=== PATIENT | male | born 1985 | race Caucasian/White ===

== ENCOUNTER 2018-04-12 11:10 | Outpatient (RCR) | payer OTHER, MEDICAID, SELFPAY ==
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
== END 2018-09-06 11:07 ==
LOC: PHYS 11:10
PROVIDERS: Visit Provider Family Medicine Sports Medicine
DX: R26.9 Unspecified abnormalities of gait and mobility (principal)
CPT/HCPCS: 97163

== ENCOUNTER → 2019-12-08 10:04 | Outpatient (CLI) | payer OTHER, MEDICAID, SELFPAY ==
[2019-12-09 09:44] LABS: COVID19 Sendout NOT DETECTED (Not Detect)
== END ==
PROVIDERS: Visit Provider Physician Assistant
DX: Z01.812 Encounter for preprocedural laboratory examination (principal)
CPT/HCPCS: 87635

== ENCOUNTER 2024-05-02 09:08 | Emergency (ER) | payer OTHER, MEDICAID, SELFPAY ==
[2024-05-02] VITALS (9 sets, daily range): BP systolic 147–189; BP diastolic 79–103; PULSE 93–114; RESP 17–24; TEMP 36.8; O2SAT 98–99; BMI 25.8
--- NOTE | 2024-05-02 10:20 | ED_ITS ---
HPI - Wound/Laceration General Chief Complaint: Wound/Laceration Stated Complaint: left leg infection Time Seen by Provider: 05/02/24 09:12 History of Present Illness HPI narrative: 38-year-old gentleman with a history of lower extremity weakness for which he typically uses a wheelchair after some type of cervical spine injury a number of years ago, comes in complaining of infection in his left knee. He apparently has been seen at urgent care x2 and an ER visit over the course of the , and . In transferring from his wheelchair into the car he occasionally has falls landing on his knees. Developed an abrasion on the left knee that was looking like it was becoming infected. He states that he is allergic to ?absolutely every single antibiotic there is and I can not possibly have any antibiotic ever?. With all prior visits he was told that this was a superficial abrasion that there was not enough abscess or drainage to warrant I&D. He is frustrated with those visits and felt the wound should have been opened. Last night it started draining any comes [place] for further evaluation. He is complaining of moderate pain, there is mild amount of surrounding erythema. Moderate drainage from the central part of the abrasion. No other injuries Related Data Previous Rx's Medication Instructions Recorded methocarbamol 500 mg tablet 500 mg PO BIDP PRN #20 tabs 03/23/17 ondansetron 4 mg disintegrating 4 mg sublingual Q6HP PRN ##10 09/20/17 tablet (Zofran ODT) oxycodone 5 mg tablet 10 mg (2 x 5 mg) PO Q6HP PRN #10 09/20/17 tabs acetaminophen 325 mg tablet 325 mg PO Q6HP PRN #30 tabs 10/02/17 ibuprofen 400 mg tablet 400 mg PO Q6HP PRN #30 tabs 10/02/17 bacitracin 500 unit/gram topical 1 applic topical Q8H #144 ea 05/02/24 packet Allergies Allergy/AdvReac Type Severity Reaction Status Date / Time chocolate flavor Allergy Unknown Unverified 09/29/17 11:48 [CHOCOLATE FLAVOR] Penicillins [PENICILLINS] Allergy Unknown Unverified 09/29/17 11:48 PT STATES UNKNOWN ANTIBIOTICS Allergy Severe throat Uncoded 09/29/17 11:48 swells shut BEE STINGS Allergy Unknown Uncoded 09/29/17 11:48 nuts Allergy Unknown Uncoded 09/29/17 11:48 PEPPERS Allergy Unknown Uncoded 09/29/17 11:48 Review of Systems Review of Systems Narrative: Pertinent positive and negative findings as per HPI Patient History Medical History Latex allergy status Seizure Social History Smoking Status: Unknown if ever smoked Smoking Status: Unknown if ever smoked alcohol intake frequency: other Substance Use Type: does not use Exam Initial Vital Signs Initial Vital Signs: Vital Signs Temperature 98.3 F 05/02/24 09:11 Pulse Rate 114 H 05/02/24 09:11 Respiratory Rate 18 05/02/24 09:11 Blood Pressure 167/99 H 05/02/24 09:11 Pulse Oximetry 99 05/02/24 09:11 Oxygen Delivery Method Room Air 05/02/24 09:11 General: Alert disheveled, slightly pressured speech, completely cooperative Respiratory: Able to speak in full sentences, no obvious respiratory distress Skin: No obvious rashes, warm and dry Neurologic: Grossly intact no obvious asymmetries or abnormalities Extremity: He is area of infection just under the left knee. It does appear that it is draining, there was approximately 2 cm at if expanding erythema on the lateral aspect of it. There does not seem to be significant underlying fluctuance Procedures Abscess I/D Left knee: Time of procedure: 11:11 Site: lower extremity Side (if applicable): left Local Anesthetic: lidocaine 1% and with epi Amount of anesthesia used (mL): 4 Technique: incised with #11 blade Amount of fluid expressed (mL): 0.2 Irrigation: Yes Packing used?: none Course Vital Signs Vital signs: Vital Signs - 8 hr 05/02/24 09:11 05/02/24 09:27 05/02/24 09:27 Temperature 98.3 F Pulse Rate 114 H Respiratory Rate 18 17 Blood Pressure 167/99 H 189/95 H Pulse Oximetry 99 99 Oxygen Delivery Method Room Air 05/02/24 09:30 05/02/24 09:30 05/02/24 09:40 Temperature Pulse Rate 107 H 104 H Respiratory Rate 24 Blood Pressure 179/93 H Pulse Oximetry 99 Oxygen Delivery Method 05/02/24 10:00 05/02/24 10:00 Temperature Pulse Rate 101 H Respiratory Rate 19 Blood Pressure 153/92 H Pulse Oximetry 98 Oxygen Delivery Method MDM - Wound/Laceration MDM Narrative Medical decision making narrative: 38-year-old gentleman presents for the 1st time to [place] ER, it looks like he has a complex medical history including seizures, lower extremity weakness needing a wheelchair, chronic pain issues, perhaps Asperger's disorder, perhaps myocardial infarction, it is unclear if he actually has a place to live, he has a long story with multiple details about 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 He has an abrasion on the left upper tibia that has become superficially infected, it is draining. He insisted on having it opened and flushed. I have done that. There was minimal drainage minimal purulence and no foreign bodies. It was flushed to his specifications. The wound edges were gently debrided. There is minimal surrounding cellulitis to the area. This is not a suprapatellar or prepatellar bursa. There is no joint infection this does not extend deeper into surrounding tissue At this time, I believe simple wound care is going to allow this to heal appropriately. Patient absolutely declines any even consideration of antibiotics. We did discuss his high blood pressure and rapid heart rate. You was complaining of severe pain he was given 2 Percocet to help with that in the emergency department Assistance was given by staff to help him find another wheelchair and apparently the [facility] has 1 available later this afternoon He is safe for discharge Discharge Plan Departure Patient Disposition: Home Clinical Impression: Abscess Instructions: DI for Skin Abscess Activity Restrictions/Additional Instructions: I am glad we were able to get the wound to your left knee cleaned to your specifications. There was not much pus that was still in the wound, and the wound itself is not very deep. It was rinsed out thoroughly At this point should heal nicely without any oral antibiotics. Please do continue to use topical antibiotics and dressings as needed A new prescription for additional bacitracin topical antibiotic was electronically transmitted to [facility] If it is getting worse you are having worsening symptoms you do need to be re- evaluated Prescriptions: New bacitracin 500 unit/gram packet 1 applic topical Q8H Qty: 144 0RF No Action methocarbamol 500 MG tablet 500 mg PO BIDP PRNQty: 20 0RF oxycodone 5 MG tablet 10 mg PO Q6HP PRNQty: 10 0RF ondansetron [Zofran ODT] 4 MG tablet,disintegrating 4 mg Sublingual Q6HP PRNQty: 10 0RF acetaminophen 325 MG tablet 325 mg PO Q6HP PRNQty: 30 0RF ibuprofen 400 MG tablet 400 mg PO Q6HP PRNQty: 30 0RF Stand Alone Forms: Patient Portal/API/Survey
[2024-05-02] MEDS: OXYCODONE/ACETAMINOPHEN 5/325 TABLET 2 TAB PO (11:40)
--- NOTE | 2024-05-02 11:58 | PC.NURSE ---
Pt provided with taxi voucher to [employer] shop to obtain a wheelchair. Pt verbalizes understanding of instructions.
== END 2024-05-02 12:00 | disposition home or self-care (01) ==
PROVIDERS: Emergency Provider Emergency Medicine
DX: L02.416 Cutaneous abscess of left lower limb (principal)
CPT/HCPCS: 10060; 87070; 87077; 87147; 87186; 87205; 99283

== ENCOUNTER 2024-05-04 10:04 | Emergency (ER) | payer OTHER, MEDICAID, SELFPAY ==
[2024-05-04 10:20] VITALS: BP 163/93; PULSE 109; RESP 22; TEMP 37.4; O2SAT 99
--- NOTE | 2024-05-04 10:30 | ED.SKABFB ---
HPI - Skin/Abscess/Foreign Bdy General Chief complaint: Skin/Abscess/Foreign Body Stated complaint: Left knee infection Time Seen by Provider: 05/04/24 10:16 Source: patient Mode of arrival: Ambulatory Limitations: no limitations History of Present Illness HPI narrative: Patient is a 38-year-old male who states that he has ?no control of his muscles? from his mid thigh to his mid tibia. He spends time in a wheelchair. Was seen here in the emergency department approximately 48 hours ago where he had an incision and drainage of an abscess to his left knee. He states that he can not take any antibiotics because of prior reactions. Topical antibiotics were placed at that time. He was discharged home refusing any oral antibiotics. Apparently he was seen at the walk-in clinic yesterday. Was told that if his symptoms worsen he could lose his leg. He comes in the emergency department today stating that the redness seems to be changing locations. It is draining. He states that he would like to be admitted to the hospital for observation. Related Data Previous Rx's Medication Instructions Recorded methocarbamol 500 mg tablet 500 mg PO BIDP PRN #20 tabs 03/23/17 ondansetron 4 mg disintegrating 4 mg sublingual Q6HP PRN ##10 09/20/17 tablet (Zofran ODT) oxycodone 5 mg tablet 10 mg (2 x 5 mg) PO Q6HP PRN #10 09/20/17 tabs acetaminophen 325 mg tablet 325 mg PO Q6HP PRN #30 tabs 10/02/17 ibuprofen 400 mg tablet 400 mg PO Q6HP PRN #30 tabs 10/02/17 bacitracin 500 unit/gram topical 1 applic topical Q8H #144 ea 05/02/24 packet Allergies Allergy/AdvReac Type Severity Reaction Status Date / Time chocolate flavor Allergy Unknown Unverified 09/29/17 11:48 [CHOCOLATE FLAVOR] Penicillins [PENICILLINS] Allergy Unknown Unverified 09/29/17 11:48 PT STATES UNKNOWN ANTIBIOTICS Allergy Severe throat Uncoded 09/29/17 11:48 swells shut BEE STINGS Allergy Unknown Uncoded 09/29/17 11:48 nuts Allergy Unknown Uncoded 09/29/17 11:48 PEPPERS Allergy Unknown Uncoded 09/29/17 11:48 Review of Systems Musculoskeletal Musculoskeletal: Reports system reviewed and no additional complaints, except as documented Integumentary/Breasts Skin/Breast: Reports system reviewed and no additional complaints, except as documented Patient History Medical History Latex allergy status Seizure Social History Smoking Status: Unknown if ever smoked Smoking Status: Unknown if ever smoked alcohol intake frequency: other Substance Use Type: does not use Exam Initial Vital Signs Initial Vital Signs: Vital Signs Temperature 99.3 F 05/04/24 10:20 Pulse Rate 109 H 05/04/24 10:20 Respiratory Rate 22 05/04/24 10:20 Blood Pressure 163/93 H 05/04/24 10:20 Pulse Oximetry 99 05/04/24 10:20 Oxygen Delivery Method Room Air 05/04/24 10:20 Skin Other: Patient has a 2 cm open wound to the anterior aspect of his left knee just inferior to the patella. There is a small amount of purulent material that is expressed. There was quite a bit of tissue that was easily removed. There is a small amount of erythema that extends approximately 3 cm to the lateral aspect of the wound. No crepitus. No fluctuance noted. Course Orders Ordered: Discontinued Medications Acetaminophen (Acetaminophen 325 Mg Tablet) 650 mg PO NOW ONE Stop: 05/04/24 10:32 Bacitracin (Bacitracin Oint 0.9 Gm Pckt) 1 applic TOP NOW ONE Stop: 05/04/24 10:32 Vital Signs Vital signs: Vital Signs - 8 hr 05/04/24 10:20 Temperature 99.3 F Pulse Rate 109 H Respiratory Rate 22 Blood Pressure 163/93 H Pulse Oximetry 99 Oxygen Delivery Method Room Air MDM - Skin/Abscess/Foreign Bdy MDM Narrative Medical decision making narrative: There was no indication for any radiologic studies. The wound is open and does appear to be draining a small amount of purulent material. There was a small amount of erythema specifically to the lateral aspect of the wound. He was outlined with a marker. I recommended that the patient start on oral antibiotics. He does not need admitted to the hospital. I offered to give him a dose of antibiotics here in the ER and watch him for a period of time to make sure he does not have any sort of reactions however the patient declined this. I told him that there was a possibility that his symptoms will improve with time but there was also a possibility that the cellulitis would worsen without antibiotics. He was not septic today. Nontoxic appearing. Patient expressed understanding of this. Is adamant that he does not want antibiotics. The wound was irrigated. Topical antibiotics were placed and he seemed to tolerate this well the last time. Advised that he return to the emergency department if his symptoms worsen. Patient is alert and oriented x3. GCS of 15. Not clinically intoxicated my opinion has capacity to make decisions. Discharge Plan Departure Patient Disposition: Home Clinical Impression: Cellulitis Instructions: DI for Cellulitis -- Adult Activity Restrictions/Additional Instructions: Despite my recommendation to start antibiotics you have opted to wait to see whether or not the wound heals on its own. There is a possibility that this will happen. I recommend keeping the area clean with soap and water. A topical antibiotic ointment can be helpful as well. If your symptoms worsen over the next 24-48 hours then please return to the emergency department for further evaluation. Prescriptions: No Action methocarbamol 500 MG tablet 500 mg PO BIDP PRNQty: 20 0RF oxycodone 5 MG tablet 10 mg PO Q6HP PRNQty: 10 0RF ondansetron [Zofran ODT] 4 MG tablet,disintegrating 4 mg Sublingual Q6HP PRNQty: 10 0RF acetaminophen 325 MG tablet 325 mg PO Q6HP PRNQty: 30 0RF ibuprofen 400 MG tablet 400 mg PO Q6HP PRNQty: 30 0RF bacitracin 500 unit/gram packet 1 applic topical Q8H Qty: 144 0RF Stand Alone Forms: Patient Portal/API/Survey
--- NOTE | 2024-05-04 10:34 | PC.NURSE ---
Dr Ash at bedside. Pt declined recommended abx treatment and rx due to being allergic to every antibiotic known to man. Wound on left knee draining yellowish-carreon puss and surrounding tissue edemetous and red. States 4/10 pain when touched, but otherwise no pain.
[2024-05-04] MEDS: ACETAMINOPHEN 325 MG TABLET 650 MG PO (10:44)
[2024-05-04] MEDS: BACITRACIN OINT 0.9 GM PCKT 1 APPLIC TOP (10:44)
--- NOTE | 2024-05-04 11:02 | PC.NURSE ---
Wound incision cleaned with soapy water and irrigated with normal saline. Bacitracin applied. Covered with nonstick gauze, kerlix and alexx bandage. Pt offered IV abx and a period of obs in the ED, but declined. Refused vital signs and assistance out of the dept.
== END 2024-05-04 11:10 | disposition home or self-care (01) ==
PROVIDERS: Emergency Provider Emergency Medicine
DX: L03.116 Cellulitis of left lower limb (principal)
CPT/HCPCS: 99283

== ENCOUNTER 2024-05-13 10:47 | Emergency (ER) | payer OTHER, MEDICAID, SELFPAY ==
[2024-05-13] VITALS (9 sets, daily range): BP systolic 147–162; BP diastolic 70–88; PULSE 98–118; RESP 18–39; TEMP 36.9; O2SAT 97–98
--- NOTE | 2024-05-13 11:30 | PC.NURSE ---
Pt is adamant that he is allergic to all antibiotics and refusing to entertain the subject of taking them. Unable to name any antibiotics that he is allergic to. States it keeps falling off my chart. States he does not think the infection is bad enough and rather not risk it. HR 112.
--- NOTE | 2024-05-13 11:35 | ED_ITS ---
HPI - Skin/Abscess/Foreign Bdy General Chief complaint: Skin/Abscess/Foreign Body Stated complaint: left leg bothering him Time Seen by Provider: 05/13/24 11:35 Source: patient Mode of arrival: Ambulatory Limitations: no limitations History of Present Illness HPI narrative: patient is a 38-year-old male wheelchair-bound, history of no control of his muscles from his mid thigh to mid tibia, coming in complaining of persistent pain drainage swelling to the knee. Has been seen here previously multiple times for the same. On review of records shows that patient is not amenable to antibiotics, he states that he is allergic to them and refuses to take any antibiotics. He is willing to do topical antibiotics only. There was concern at that time that patient was having cellulitis was told to try oral antibiotics but he states that he is anaphylactic to all antibiotics therefore he has not willing to take any oral antibiotics. He presents due to persistent redness pain to that area stating that it is not any worse than prior but due to persistent symptoms decided come into the ED for further evaluation treatment. Related Data Previous Rx's Medication Instructions Recorded methocarbamol 500 mg tablet 500 mg PO BIDP PRN #20 tabs 03/23/17 ondansetron 4 mg disintegrating 4 mg sublingual Q6HP PRN ##10 09/20/17 tablet (Zofran ODT) oxycodone 5 mg tablet 10 mg (2 x 5 mg) PO Q6HP PRN #10 09/20/17 tabs acetaminophen 325 mg tablet 325 mg PO Q6HP PRN #30 tabs 10/02/17 ibuprofen 400 mg tablet 400 mg PO Q6HP PRN #30 tabs 10/02/17 bacitracin 500 unit/gram topical 1 applic topical Q8H #144 ea 05/02/24 packet bacitracin 500 unit/gram topical 1 applic topical TID 1 week #14 05/13/24 ointment grams Allergies Allergy/AdvReac Type Severity Reaction Status Date / Time chocolate flavor Allergy Unknown Unverified 09/29/17 11:48 [CHOCOLATE FLAVOR] Penicillins [PENICILLINS] Allergy Unknown Unverified 09/29/17 11:48 PT STATES UNKNOWN ANTIBIOTICS Allergy Severe throat Uncoded 09/29/17 11:48 swells shut BEE STINGS Allergy Unknown Uncoded 04/11/18 11:48 nuts Allergy Unknown Uncoded 09/29/17 11:48 PEPPERS Allergy Unknown Uncoded 09/29/17 11:48 Review of Systems Review of Systems Narrative: General: Denies fever, chills, weight loss HEENT: Denies headache, eye drainage, eye irritation, head trauma, sore throat, voice change Cardiovascular: Denies any chest pain, palpitations, shortness of breath, tachycardia Respiratory: Denies any shortness of breath, cough, wheeze, stridor GI/: Denies any abdominal pain, nausea, vomiting, diarrhea, bright red blood per rectum, melanotic stools, urinary frequency, urinary retention, dysuria, hematuria MSK: Denies any joint pain, muscle pains, swelling Skin: left knee pain, swelling, redness Neuro: Denies any headache, lightheadedness, dizziness, fainting, weakness Psych: Denies SI/HI Patient History Medical History Latex allergy status Seizure Social History Smoking Status: Unknown if ever smoked Smoking Status: Unknown if ever smoked alcohol intake frequency: other Substance Use Type: does not use Exam Narrative Exam Narrative: General: Cooperative, comfortable, well-developed, not in acute distress HEENT: Normocephalic, atraumatic, PERRLA, normal sclera, eyelids normal, Neck: Active full range of motion, atraumatic Chest: Normal to inspection, negative crepitus, no overlying erythema ecchymosis Respiratory: Normal respiratory effort, not in acute respiratory distress, clear to auscultation bilaterally negative cough, wheeze, tachypnea, rhonchi, rales Cardiology: Regular rate rhythm negative gallop, murmur, rubs GI/: Normal to inspection, soft, nonrigid, no tenderness to palpation, exam deferred MSK: Full range of active range of motion of all 4 extremities, atraumatic Skin: there is erythema noted to the left knee, no purulent discharge noted, mild tenderness to palpation overlying the superior aspect of the left knee, no fluctuance, did outline erythema at evaluation here in the emergency department. Neuro: patient at baseline, states he has not able to move his lower extremities from thigh to mid tib, Psych: Cooperative, negative suicidal or homicidal ideations Initial Vital Signs Initial Vital Signs: Vital Signs Temperature 98.5 F 05/13/24 10:49 Pulse Rate 110 H 05/13/24 10:49 Respiratory Rate 20 05/13/24 10:49 Blood Pressure 147/70 H 05/13/24 10:49 Pulse Oximetry 98 05/13/24 10:49 Oxygen Delivery Method Room Air 05/13/24 10:49 Course Orders Ordered: ED Orders 05/13/24 11:27 BMP [Basic Metabolic Panel] Stat CBC Auto Diff [Complete Blood Count AUTO DIFF] Stat 05/13/24 11:53 XR knee LT 3V Stat Discontinued Medications Bacitracin (Bacitracin Oint 0.9 Gm Pckt) 1 applic TOP NOW ONE Stop: 05/13/24 11:54 Last Admin: 05/13/24 13:02 Dose: 1 applic Documented By: JHON Vital Signs Vital signs: Vital Signs - 8 hr 05/13/24 10:49 05/13/24 11:08 05/13/24 11:09 Temperature 98.5 F Pulse Rate 110 H Respiratory Rate 20 Blood Pressure 147/70 H 150/75 H Pulse Oximetry 98 98 Oxygen Delivery Method Room Air 05/13/24 11:09 05/13/24 11:30 05/13/24 11:30 Temperature Pulse Rate 118 H 109 H Respiratory Rate 19 Blood Pressure 152/83 H Pulse Oximetry 98 98 Oxygen Delivery Method 05/13/24 11:31 05/13/24 11:31 05/13/24 11:45 Temperature Pulse Rate 109 H 101 H Respiratory Rate 19 18 Blood Pressure 162/82 H Pulse Oximetry 98 98 Oxygen Delivery Method 05/13/24 11:45 05/13/24 12:42 05/13/24 13:00 Temperature Pulse Rate 98 H 101 H Respiratory Rate 39 H 28 H Blood Pressure 159/88 H Pulse Oximetry 97 98 Oxygen Delivery Method MDM - Skin/Abscess/Foreign Bdy Differential Diagnosis Differential diagnosis: Likely abscess of skin or subcutaneous tissue and other (Cellulitis, foreign body) Lab Data 05/13/24 11:27 05/13/24 11:27 Labs: Lab Results 05/13/24 Range/Units 11:27 WBC 11.5 H (4.5-11.0) X10^3/uL RBC 6.23 H (4.5-5.9) X10^6/uL Hgb 17.4 (13.5-17.5) g/dL Hct 51.5 (41-53) % MCV 82.6 (80-100) fL MCH 28.0 (26-34) PG MCHC 33.8 (30-36) % RDW 13.5 (11.6-14.8) % Plt Count 314 (150-400) X10^3/uL Neut % (Auto) 76.1 H (50-75) % Lymph % (Auto) 9.8 L (25-40) % [place] % (Auto) 11.7 (3-14) % Eos % (Auto) 1.1 L (2-4) % Baso % (Auto) 1.3 (0-2) % Neut # (Auto) 8700 H (8133-3129) /uL Lymph # (Auto) 1100 (4267-3306) /uL [place] # (Auto) 1300 H (0-900) /uL Eos # (Auto) 100 (0-450) /uL Baso # (Auto) 100 (0-100) /uL Sodium 140 (137-145) mmol/L Potassium 3.9 (3.4-5.1) mmol/L Chloride 104 (98-107) mmol/L Carbon Dioxide 27 (22-32) mmol/L BUN 15 (9-20) mg/dL Creatinine 0.69 (0.66-1.25) mg/dL Estimated GFR > 60 (>60) mL/min BUN/Creatinine Ratio 21.7 (6-22) Glucose 82 (70-100) mg/dL Calcium 9.8 (8.4-10.2) mg/dL Imaging Data Extremity x-ray #1: Radiologist's Impression: [address] [address] XRay Report Signed Patient: Lisa Bustamante MR#: [id number] : 02/16/1952 Acct:[id number] Age/Sex: 72 / F Date of Service: 05/13/24 Loc: ED Accession Number: [id number] Procedure: XR chest 1V Ordering Provider: Andrzej Rod D.O. PROCEDURE: XR CHEST 1V INDICATIONS: chest pain TECHNIQUE: One view of the chest was acquired. COMPARISON: [facility], LISA, XR CHEST 1V, 11/14/2023, 16:47. FINDINGS: Surgical changes and devices: None. Lungs and pleura: Lungs are clear. No pleural effusions or pneumothorax. Mediastinum: Mediastinal contours appear normal. Heart size is normal. Bones and chest wall: No suspicious bony lesions. Overlying soft tissues appear unremarkable. IMPRESSION: No acute cardiopulmonary abnormality is seen. MDM Narrative Medical decision making narrative: patient is a 38-year-old male wheelchair-bound complaining of persistent left knee swelling pain redness, to note patient states that he is allergic an anaphylactic every oral antibiotic known to man. He states that he is able to tolerate topical antibiotics, bacitracin tends to work for him. States that he is worried that he has a migrating foreign body in his left knee. Denies any new trauma falls. No micro motion tenderness to the left knee, Patient did have lab work performed here, does have slight leukocytosis at 11.5, but he is afebrile, I did inform patient that it would be highly recommended that he start oral antibiotics given up trending white blood cells, he states that he adamantly refuses would not even want IV antibiotics, he states that he would rather try to fight it off with topical antibiotics, informed him that he shouldAt least follow up with his primary care doctor Infectious Disease for his ongoing symptoms he verbalized understanding of this strict return precautions were given he understands and agrees with this plan patient will be discharged home with outpatient follow up. Discharge Plan Departure Patient Disposition: Home Clinical Impression: Cellulitis Activity Restrictions/Additional Instructions: please follow up with infectious disease as well as primary care Please read the discharge instructions sheet carefully and bring all papers to all doctor follow-up visits, as it may contain information that your doctor may want to see. Disease processes change and evolve, if your symptoms worsen or if you develop any new symptoms that are concerning to you please return for evaluation. Your evaluation today does not show any evidence of any life- threatening/serious illnesses requiring admission to the hospital or surgery. Please follow-up with your doctor for re-evaluation in approximately 1 day. Seek immediate medical attention for any worrisome symptoms. Prescriptions: New bacitracin 500 unit/gram ointment 1 applic topical TID 7 Days Qty: 14 0RF No Action methocarbamol 500 MG tablet 500 mg PO BIDP PRNQty: 20 0RF oxycodone 5 MG tablet 10 mg PO Q6HP PRNQty: 10 0RF ondansetron [Zofran ODT] 4 MG tablet,disintegrating 4 mg Sublingual Q6HP PRNQty: 10 0RF acetaminophen 325 MG tablet 325 mg PO Q6HP PRNQty: 30 0RF ibuprofen 400 MG tablet 400 mg PO Q6HP PRNQty: 30 0RF bacitracin 500 unit/gram packet 1 applic topical Q8H Qty: 144 0RF Stand Alone Forms: Patient Portal/API/Survey
--- NOTE | 2024-05-13 11:53 | DI.RAD.S_ITS ---
PROCEDURE: XR KNEE LT 3V INDICATIONS: Please evaluate for foreign body TECHNIQUE: 3 views of the knee were acquired. COMPARISON: None. FINDINGS: Bones: No fractures or dislocations. No suspicious bony lesions. Soft tissues: Laceration and soft tissue swelling can be seen anteriorly. No radiopaque foreign bodies are seen. IMPRESSION: No radiopaque foreign bodies are seen. Anterior soft tissue swelling and laceration. Dictated by: Suraj Layne M.D. on 05/13/2024 at 11:36 Approved by: Suraj Layne M.D. on 05/13/2024 at 11:37
[2024-05-13 12:08] LABS: Add Manual Diff / Slide Review NO; BUN Creatinine Ratio 21.7 (6-22); Basophils Absolute Auto 100 /uL (0-100); Basophils Percent Auto 1.3 % (0-2); Blood Urea Nitrogen 15 mg/dL (9-20); Calcium 9.8 mg/dL (8.4-10.2); Carbon Dioxide 27 mmol/L (22-32); Chloride 104 mmol/L (98-107); Eosinophils Absolute Auto 100 /uL (0-450); Eosinophils Percent Auto 1.1 % (2-4); Estimated Glomerular Filt Rate > 60 mL/min (>60); Glucose 82 mg/dL (70-100); HEMOLYSIS 21 (0-50); Hematocrit 51.5 % (41-53); Hemoglobin 17.4 g/dL (13.5-17.5); Lymphocytes Absolute Auto 1100 /uL (1100-4500); Lymphocytes Percent Auto 9.8 % (25-40); Mean Corpuscular HGB Conc 33.8 % (30-36); Mean Corpuscular Volume 82.6 fL (80-100); Monocytes Absolute Auto 1300 /uL (0-900); Monocytes Percent Auto 11.7 % (3-14); Neutrophils Absolute Auto 8700 /uL (1500-7000); Neutrophils Percent Auto 76.1 % (50-75); Platelet Count 314 X10^3/uL (150-400); Potassium 3.9 mmol/L (3.4-5.1); Red Blood Cell Count 6.23 X10^6/uL (4.5-5.9); Red Cell Distribution Width 13.5 % (11.6-14.8); Sodium 140 mmol/L (137-145); White Blood Cell Count 11.5 X10^3/uL (4.5-11.0)
[2024-05-13] MEDS: BACITRACIN OINT 0.9 GM PCKT 1 APPLIC TOP ×2 (13:02→13:56)
--- NOTE | 2024-05-13 14:06 | PC.NURSE ---
pt cleansed wound with alcohol and peroxide [employer] boat [employer], bacitracin to site with nonadherent dressing and roll gauze.
== END 2024-05-13 14:07 | disposition home or self-care (01) ==
PROVIDERS: Emergency Provider Student in an Organized Health Care Education/Training Program
DX: L03.116 Cellulitis of left lower limb (principal); Z99.3 Dependence on wheelchair; Z88.1 Allergy status to other antibiotic agents
CPT/HCPCS: 73562; 80048; 85025; 99282; 99283